=== PATIENT | female | born 2000 | race Caucasian/White ===

== ENCOUNTER 2022-05-17 18:45 | Emergency (ER) | payer OTHER ==
[~2022-05-17] VITALS: Ht 172.7 cm; Wt 68.2 kg
[2022-05-17 18:49] VITALS: BP 129/78; TEMP 98.1
[2022-05-17 19:15] VITALS: PULSE 67
== END 2022-05-17 19:15 | disposition home or self-care (01) ==
LOC: COL.ER 18:45
DX: S61.012A Laceration without foreign body of left thumb without damage to nail, initial encounter (principal); Z28.310 Unvaccinated for COVID-19; W26.0XXA Contact with knife, initial encounter; Y93.G1 Activity, food preparation and clean up